=== PATIENT | female | born 1980 | race Caucasian/White ===

== ENCOUNTER → 2016-07-06 | Outpatient (CLI) | payer OTHER ==
[2016-07-06 13:40] LABS: ALANINE AMINOTRANSFERASE 24 U/L (9-52); ALKALINE PHOSPHATASE 62 U/L (50-136); ANION GAP 10 mmol/L (7-16); BASO % 0.5 % (0.0-2.0); BILIRUBIN,TOTAL 0.9 mg/dL (0.0-1.0); BLOOD UREA NITROGEN 21 mg/dL (7-17); CARBON DIOXIDE 25 mmol/L (22-30); CHLORIDE 103 mmol/L (98-107); EOS # 0.2 (0.0-0.7); EOS % 2.7 % (0-4.0); GLUCOSE 84 mg/dL (74-106); GRAN # 4.8 (1.4-6.5); GRAN % 62.3 % (42.2-75.2); HEMATOCRIT 41.5 % (37.0-47.0); HEMOGLOBIN 14.2 g/dl (12.5-16.0); LYMPH # 1.9 (1.2-3.4); LYMPH % 24.8 % (20.0-51.0); MEAN CELL VOLUME 86 fl (80.0-100.0); MEAN CORPUSCULAR HEMOGLOBIN 30 pg (27.0-31.0); MEAN CORPUSCULAR HGB CONC 34 g/dl (33.0-37.0); MEAN PLATELET VOLUME 10.1 fl (7.4-10.4); MONO # 0.7 (0.1-0.6); MONO % 9.1 % (1.7-9.3); PLATELET COUNT 294 K/mm3 (130-400); POTASSIUM 4.1 mmol/L (3.4-5.0); RED BLOOD COUNT 4.81 M/mm3 (4.10-5.30); REDCELL DISTRIBUTION WIDTH-CV 12.2 % (11.5-14.5); SODIUM 138 mmol/L (137-145); TOTAL PROTEIN 6.8 gm/dL (6.4-8.2); WHITE BLOOD COUNT 7.8 K/mm3 (4.8-10.8)
[2016-07-06 13:42] LABS: C-REACTIVE PROTEIN < 0.5 mg/dL (0.0-0.9)
== END ==
LOC: COL.VAS 12:07
PROVIDERS: Nurse Practitioner Family
DX: I10 Essential (primary) hypertension (principal); H53.9 Unspecified visual disturbance

== ENCOUNTER → 2019-10-07 | Outpatient (CLI) | payer OTHER | LOC: COL.RAD 08:06 | DX: K80.80 Other cholelithiasis without obstruction (principal); K82.8 Other specified diseases of gallbladder; N27.0 Small kidney, unilateral; M10.00 Idiopathic gout, unspecified site; R19.7 Diarrhea, unspecified ==

== ENCOUNTER → 2019-10-16 | Outpatient (CLI) | payer OTHER | LOC: COL.RAD 11:57 | DX: N18.3 Chronic kidney disease, stage 3 (moderate) (principal) ==

== ENCOUNTER → 2019-10-22 | Outpatient (CLI) | payer OTHER | LOC: MC.RAD 08:34 | DX: Z12.31 Encounter for screening mammogram for malignant neoplasm of breast (principal) ==

== ENCOUNTER → 2019-10-31 | Outpatient (CLI) | payer OTHER | LOC: COL.CARD 06:53 | DX: Z01.818 Encounter for other preprocedural examination (principal) ==